=== PATIENT | female | born 1995 | race African-American/Black ===

== ENCOUNTER 2018-02-11 07:02 | Emergency (ER) | payer MEDICAID ==
[~2018-02-11] VITALS: Ht 160 cm; Wt 88.0 kg
[2018-02-11] MEDS ORDERED: IBUPROFEN 600MG TABLET PO ONE (07:45)
[2018-02-11 09:00] VITALS: BP 112/72
== END 2018-02-11 09:04 | disposition home or self-care (01) ==
LOC: ER 07:39
DX: M76.51 Patellar tendinitis, right knee (principal)
CPT/HCPCS: 73562; 81025; 99284